=== PATIENT | female | born 1980 | race African-American/Black ===

== ENCOUNTER 2018-05-14 21:47 | Inpatient (IN) | payer OTHER ==
[~2018-05-14] VITALS: Ht 165.1 cm; Wt 72.6 kg
[2018-05-15] MEDS ORDERED: ALBUTEROL (0.083%) 2.5MG/3ML NEB HHN STA (01:17)
[2018-05-15] MEDS ORDERED: PREDNISONE 20MG TABLET PO STA (01:17)
[2018-05-15] MEDS ORDERED: IBUPROFEN 600MG TABLET PO STA (01:17)
[2018-05-15] MEDS ORDERED: IPRATROPIUM BROMIDE (0.02%) 0.5MG/2.5ML NEB HHN STA (01:17)
[2018-05-15 01:56] LABS: BASOPHILS % 1.2 % (0.0-2.0); CHLORIDE 109 mEq/L (98-107); EOSINOPHILS % 1.9 % (0.0-5.0); HEMATOCRIT. 31.6 % (36.0-48.0); HEMOGLOBIN. 10.1 g/dL (12.0-16.0); LYMPHOCYTES % 34.2 % (20.0-50.0); MEAN CORPUSCULAR HEMOGLOBIN 27.3 pg (28.0-32.0); MEAN CORPUSCULAR VOLUME 85.6 fL (81.0-99.0); MEAN PLATELET VOLUME 10.6 fl (7.4-10.4); MONOCYTES % 5.1 % (2.0-8.0); NEUTROPHILS % 57.6 % (40.0-76.0); PLATELET 319 x1000/uL (130-400); RED BLOOD CELL COUNT 3.69 mill/uL (4.2-5.4); RED CELL DISTRIBUTION WIDTH 17.6 % (11.6-14.6)
[2018-05-15] MEDS ORDERED: ASPIRIN 325MG TABLET PO ONE (02:30)
[2018-05-15] MEDS ORDERED: LEVOFLOXACIN 750MG PREMIX 150 ML IV ONE (02:30)
[2018-05-15] MEDS ORDERED: FUROSEMIDE 40MG/4ML VIAL IV ONE (02:45)
[2018-05-15] MEDS ORDERED: ENOXAPARIN 100MG/ML SYR SUBCUT ONE (02:45)
[2018-05-15] MEDS ORDERED: NITROGLYCERIN 0.4MG TABLET SL SL ONE (02:45)
[2018-05-15] MEDS ORDERED: CALCIUM GLUCONATE 100MG/ML 10ML VIAL IV ONE (03:30)
[2018-05-15 04:30] VITALS: BP 154/112
[2018-05-15 04:31] VITALS: BP 154/112
[2018-05-15] MEDS ORDERED: IPRATROPIUM/ALBUTEROL 0.5-3(2.5)MG/3ML NEB INH PRN (05:00)
[2018-05-15] MEDS ORDERED: DIPHENHYDRAMINE 50MG/ML VIAL IV PRN (05:00)
[2018-05-15] MEDS ORDERED: CLONIDINE 0.1MG TABLET PO PRN (05:00)
[2018-05-15] MEDS ORDERED: MAGNESIUM/ALUMINUM HYDROXIDE/SIMETHICONE 30ML UDC PO PRN (05:00)
[2018-05-15] MEDS: METHYLPREDNISOLONE SOD SUCC 125 MG/2 ML VIAL IV SCH ×2 (06:05→13:22)
[2018-05-15] MEDS: SODIUM CHLORIDE 0.9% INJ 3ML FLUSH IVF SCH ×3 (06:05→20:43)
[2018-05-15 06:20] LABS: CLARITY URINE CLOUDY (CLEAR); COLOR URINE YELLOW (YELLOW); KETONES URINE NEGATIVE (NEGATIVE); LEUKOCYTE ESTERASE URINE 1+ (NEGATIVE); NITRITE URINE POSITIVE (NEGATIVE); OCCULT BLOOD URINE NEGATIVE (NEGATIVE); PROTEIN URINE TRACE (NEGATIVE); SPECIFIC GRAVITY URINE 1.018 (1.005-1.030); UROBILINOGEN URINE 0.2 E.U./dL (0.2-1.0)
[2018-05-15 07:54] VITALS: BP 136/96
[2018-05-15] MEDS: ENOXAPARIN 40MG/0.4ML SYR SUBCUT SCH (09:32)
[2018-05-15] MEDS: FUROSEMIDE 40MG/4ML VIAL IVP SCH (09:32)
[2018-05-15 12:00] VITALS: BP 140/93
[2018-05-15] MEDS: IPRATROPIUM/ALBUTEROL 0.5-3(2.5)MG/3ML NEB HHN SCH ×2 (13:50→16:46)
[2018-05-15 15:40] VITALS: BP 135/97
[2018-05-15 19:49] LABS: T4 FREE 0.73 ng/dL (0.76-1.46)
[2018-05-15] MEDS: BENAZEPRIL 5MG TABLET PO SCH (19:50)
[2018-05-15 20:00] VITALS: BP 140/99
[2018-05-15] MEDS: METOPROLOL TARTRATE 50MG TABLET PO SCH (20:41)
[2018-05-15] MEDS: ACETAMINOPHEN 325MG TABLET PO PRN (20:42)
[2018-05-16 00:05] VITALS: BP 146/96
[2018-05-16 04:00] VITALS: BP 118/79
[2018-05-16] MEDS: SODIUM CHLORIDE 0.9% INJ 3ML FLUSH IVF SCH ×3 (05:33→21:02)
[2018-05-16 08:00] VITALS: BP 130/90
[2018-05-16] MEDS: FUROSEMIDE 40MG/4ML VIAL IVP SCH ×2 (08:55→17:53)
[2018-05-16] MEDS: METOPROLOL TARTRATE 50MG TABLET PO SCH ×2 (08:56→20:56)
[2018-05-16] MEDS: BENAZEPRIL 5MG TABLET PO SCH ×2 (08:56→17:56)
[2018-05-16] MEDS: ASPIRIN 81MG EC TABLET PO SCH (08:56)
[2018-05-16] MEDS: ENOXAPARIN 40MG/0.4ML SYR SUBCUT SCH (08:57)
[2018-05-16 12:00] VITALS: BP 127/90
[2018-05-16 16:30] VITALS: BP 115/78
[2018-05-16 20:40] VITALS: BP 117/79
[2018-05-16] MEDS: ACETAMINOPHEN 325MG TABLET PO PRN (21:02)
[2018-05-17] VITALS: BP 120/73
[2018-05-17 04:51] VITALS: BP 118/71
[2018-05-17] MEDS: FUROSEMIDE 40MG/4ML VIAL IVP SCH ×2 (06:22→17:59)
[2018-05-17] MEDS: SODIUM CHLORIDE 0.9% INJ 3ML FLUSH IVF SCH ×3 (06:24→21:29)
[2018-05-17 07:17] LABS: CHLORIDE 101 mEq/L (98-107)
[2018-05-17 07:23] LABS: BASOPHILS % 0.5 % (0.0-2.0); EOSINOPHILS % 0.6 % (0.0-5.0); HEMATOCRIT. 36.6 % (36.0-48.0); HEMOGLOBIN. 11.5 g/dL (12.0-16.0); LYMPHOCYTES % 23.5 % (20.0-50.0); MEAN CORPUSCULAR HEMOGLOBIN 26.5 pg (28.0-32.0); MEAN CORPUSCULAR VOLUME 84.7 fL (81.0-99.0); MEAN PLATELET VOLUME 10.9 fl (7.4-10.4); MONOCYTES % 5.3 % (2.0-8.0); NEUTROPHILS % 70.1 % (40.0-76.0); PLATELET 353 x1000/uL (130-400); RED BLOOD CELL COUNT 4.32 mill/uL (4.2-5.4); RED CELL DISTRIBUTION WIDTH 17.1 % (11.6-14.6)
[2018-05-17 07:28] LABS: LDL CHOLESTEROL 78 mg/dL (5-100)
[2018-05-17 07:29] LABS: CREATINE KINASE 55 IU/L (26-192); CREATINE KINASE MB FRACTION 1.9 ng/mL (0.5-3.6); HDL CHOLESTEROL 58 mg/dL (40-59)
[2018-05-17 08:00] VITALS: BP 118/88
[2018-05-17 09:07] LABS: UCG SCREEN NEGATIVE
[2018-05-17] MEDS: METOPROLOL TARTRATE 50MG TABLET PO SCH (09:22)
[2018-05-17] MEDS: BENAZEPRIL 5MG TABLET PO SCH ×2 (09:22→17:59)
[2018-05-17] MEDS: ASPIRIN 81MG EC TABLET PO SCH (09:22)
[2018-05-17] MEDS: ENOXAPARIN 40MG/0.4ML SYR SUBCUT SCH (09:23)
[2018-05-17] MEDS: POTASSIUM CHLORIDE 20MEQ TABLET SR PO SCH ×2 (09:55→14:32)
[2018-05-17] MEDS ORDERED: REGADENOSON 0.4 MG/5 ML IV SCH (11:30)
[2018-05-17 12:00] VITALS: BP 117/86
[2018-05-17] MEDS ORDERED: CARVEDILOL 3.125 MG TABLET PO SCH (12:00)
[2018-05-17] MEDS: SPIRONOLACTONE 25MG TABLET PO SCH (14:38)
[2018-05-17] MEDS: CARVEDILOL 3.125 MG TABLET PO SCH ×2 (14:39→21:18)
[2018-05-17 16:30] VITALS: BP 118/83
[2018-05-17] MEDS ORDERED: DIGOXIN 125MCG TABLET PO SCH (18:00)
[2018-05-17 20:00] VITALS: BP 102/82
[2018-05-18] VITALS: BP 93/58
[2018-05-18 04:00] VITALS: BP 114/74
[2018-05-18] MEDS: SODIUM CHLORIDE 0.9% INJ 3ML FLUSH IVF SCH ×2 (05:26→14:00)
[2018-05-18] MEDS: CARVEDILOL 3.125 MG TABLET PO SCH ×2 (05:35→14:01)
[2018-05-18 06:36] LABS: BASOPHILS % 0.7 % (0.0-2.0); EOSINOPHILS % 4.2 % (0.0-5.0); HEMATOCRIT. 39.4 % (36.0-48.0); HEMOGLOBIN. 12.5 g/dL (12.0-16.0); MEAN CORPUSCULAR HEMOGLOBIN 26.8 pg (28.0-32.0); MEAN CORPUSCULAR VOLUME 84.7 fL (81.0-99.0); MEAN PLATELET VOLUME 10.7 fl (7.4-10.4); MONOCYTES % 8.6 % (2.0-8.0); NEUTROPHILS % 47.5 % (40.0-76.0); PLATELET 364 x1000/uL (130-400); RED BLOOD CELL COUNT 4.65 mill/uL (4.2-5.4)
[2018-05-18] MEDS: FUROSEMIDE 40MG/4ML VIAL IVP SCH (06:49)
[2018-05-18 06:58] LABS: CHLORIDE 100 mEq/L (98-107)
[2018-05-18 08:00] VITALS: BP 110/82
[2018-05-18] MEDS: ENOXAPARIN 40MG/0.4ML SYR SUBCUT SCH (08:30)
[2018-05-18] MEDS: SPIRONOLACTONE 25MG TABLET PO SCH (08:31)
[2018-05-18] MEDS: ASPIRIN 81MG EC TABLET PO SCH (08:31)
[2018-05-18] MEDS: BENAZEPRIL 5MG TABLET PO SCH (08:31)
[2018-05-18 12:03] VITALS: BP 111/60
[2018-05-18 13:28] VITALS: BP 109/63
== END 2018-05-18 14:30 | disposition home or self-care (01) | DRG 292 ==
LOC: ER 05-15 01:03 → 7WST 05-15 03:21 → EDBEDREQ 05-15 03:22 → EDBEDREQTM 05-15 03:22 → ENRESERV 05-15 03:24 → ER 05-15 04:04
PROVIDERS: ADMIT Internal Medicine; ATTEND Internal Medicine
DX: I11.0 Hypertensive heart disease with heart failure (principal); E44.0 Moderate protein-calorie malnutrition; I50.43 Acute on chronic combined systolic (congestive) and diastolic (congestive) heart failure; J45.909 Unspecified asthma, uncomplicated; E87.6 Hypokalemia; D64.9 Anemia, unspecified; E83.51 Hypocalcemia; F41.0 Panic disorder [episodic paroxysmal anxiety]; F41.9 Anxiety disorder, unspecified; I42.0 Dilated cardiomyopathy; Z79.899 Other long term (current) drug therapy; Z80.3 Family history of malignant neoplasm of breast; Z68.26 Body mass index [BMI] 26.0-26.9, adult; Z82.49 Family history of ischemic heart disease and other diseases of the circulatory system; Z98.891 History of uterine scar from previous surgery
CPT/HCPCS: 36415; 71045; 80053; 80061; 81003; 81025; 82550; 82553; 83036; 83690; 83735; 83880; 84439; 84443; 84481; 84484; 85025; 85379; 87040; 87086; 93005; 94640; 96365; 96372; 96375; 99285; J0610; J1650; J1940; J1956; J2930; J7030; J7512; J7611; J7620